=== PATIENT | female | born 1985 | race Caucasian/White ===

== ENCOUNTER → 2016-07-15 | Outpatient (REF) | payer OTHER, MEDICAID | LOC: M SFHCLACO 12:18 | PROVIDERS: ATTEND Physician Assistant | DX: R30.0 Dysuria (principal) ==

== ENCOUNTER → 2016-11-23 | Outpatient (CLI) | payer MEDICAID ==
[2016-11-23 16:58] LABS: ALBUMIN 3.8 GM/DL (3.2-5.2); ALBUMIN/GLOBULIN RATIO 1.52 (1.00-1.93); ALKALINE PHOSPHATASE 40 U/L (45-117); ALT/SGPT 21 U/L (12-78); AMYLASE 52 U/L (25-115); ANION GAP 5 MEQ/L (8-16); AST/SGOT 12 U/L (15-37); BILIRUBIN,TOTAL 0.2 MG/DL (0.2-1.0); BLOOD UREA NITROGEN 10 MG/DL (7-18); CARBON DIOXIDE LEVEL 28 MEQ/L (21-32); CHLORIDE LEVEL 109 MEQ/L (98-107); CREATININE FOR GFR 0.69 MG/DL (0.55-1.02); GLOMERULAR FILTRATION RATE > 60.0 (>60); GLUCOSE, FASTING 69 MG/DL (70-105); POTASSIUM SERUM 4.5 MEQ/L (3.5-5.1); SODIUM LEVEL 142 MEQ/L (136-145); TOTAL PROTEIN 6.3 GM/DL (6.4-8.2)
[2016-11-23 17:04] LABS: BASO % 0.4 % (0.0-1.0); EOS # 0.1 K/mm3 (0.0-0.50); EOS % 1.5 % (0.0-3.0); LARGE UNSTAINED CELL # 0.1 K/mm3 (0.0-0.4); LARGE UNSTAINED CELL % 1.7 % (0.0-4.0); LYMPH # 1.9 K/mm3 (1.5-4.5); LYMPH % 24.9 % (24.0-44.0); MEAN CORPUSCULAR HEMOGLOBIN 32.3 pg (27.0-33.0); MEAN CORPUSCULAR HGB CONC 31.7 g/dl (32.0-36.5); MEAN CORPUSCULAR VOLUME 101.9 fl (80.0-96.0); MONO # 0.4 K/mm3 (0.0-0.8); MONO % 5.4 % (0.0-5.0); NEUTROPHILS # 5.1 K/mm3 (1.8-7.7); NEUTROPHILS % 66.2 % (36.0-66.0); PLATELET COUNT, AUTOMATED 309 k/mm3 (150-450); RED CELL DISTRIBUTION WIDTH 11.8 % (11.5-14.5); WHITE BLOOD COUNT 7.7 K/mm3 (4.0-10.0)
== END ==
LOC: M ADAMS 09:52
PROVIDERS: ATTEND Physician Assistant
DX: R10.10 Upper abdominal pain, unspecified (principal)

== ENCOUNTER → 2016-12-21 | Outpatient (CLI) | payer MEDICAID ==
[2016-12-21 18:11] LABS: BASO % 0.2 % (0.0-1.0); EOS # 0.1 K/mm3 (0.0-0.50); EOS % 1.4 % (0.0-3.0); LARGE UNSTAINED CELL # 0.1 K/mm3 (0.0-0.4); LARGE UNSTAINED CELL % 1.5 % (0.0-4.0); LYMPH # 0.9 K/mm3 (1.5-4.5); LYMPH % 11.5 % (24.0-44.0); MEAN CORPUSCULAR HEMOGLOBIN 32.7 pg (27.0-33.0); MEAN CORPUSCULAR HGB CONC 33.4 g/dl (32.0-36.5); MONO # 0.6 K/mm3 (0.0-0.8); NEUTROPHILS # 5.3 K/mm3 (1.8-7.7); NEUTROPHILS % 77.4 % (36.0-66.0); PLATELET COUNT, AUTOMATED 243 k/mm3 (150-450); RED CELL DISTRIBUTION WIDTH 12.3 % (11.5-14.5); WHITE BLOOD COUNT 6.8 K/mm3 (4.0-10.0)
== END ==
LOC: M WUC 14:39
PROVIDERS: ATTEND Physician Assistant
DX: N73.9 Female pelvic inflammatory disease, unspecified (principal)

== ENCOUNTER → 2016-12-26 | Outpatient (CLI) | payer MEDICAID ==
--- NOTE | 2016-12-26 17:23 | REP ---
PELVIC ULTRASOUND: Real-time sonographic evaluation of the pelvis is performed utilizing transabdominal technique. The bladder measures 8. 2 x 4.7 x 9.6 cm. The uterus measures 10.0 x 4.9 x 5.9 cm. Endometrial thickness is 5 mm. Ovaries are normal in size and echotexture, the right ovary measuring 3.9 x 2.9 x 3.0 cm and left ovary 3.3 x 2.3 x 2.5 cm. There is no adnexal mass or free fluid. There is no torsion, with blood flow seen in each ovary with duplex Doppler evaluation, RI right ovary 0.62 and left ovary 0.54. IMPRESSION: Negative pelvic ultrasound. Signed by Santi Craven MD 12/26/2016 05:27 P
== END ==
LOC: M RAD 14:23
PROVIDERS: ATTEND Nurse Practitioner Women's Health
DX: R10.9 Unspecified abdominal pain (principal)

== ENCOUNTER 2017-04-11 19:15 | Emergency (ER) | payer MEDICAID, OTHER, SELFPAY ==
[~2017-04-11] VITALS: Ht 170.2 cm; Wt 61.4 kg
[2017-04-11] MEDS ORDERED: SUMA100T2 (19:27)
[2017-04-11] MEDS ORDERED: BUTA-198 (19:27)
[2017-04-11] MEDS ORDERED: TOPI50TA9 PO (19:27)
[2017-04-11] MEDS ORDERED: IBUP80TA (19:27)
[2017-04-11] MEDS ORDERED: BOTO200I (19:27)
[2017-04-11] MEDS ORDERED: HEAT0.35 (19:27)
[2017-04-11] MEDS ORDERED: NS 1,000 ML IV ONE (20:45)
[2017-04-11] MEDS ORDERED: diphenhydrAMINE INJ 50MG/ML VIAL (J1200) IV ONE (20:45)
[2017-04-11] MEDS ORDERED: METOCLOPRAMIDE INJ 10MG/2ML VIAL (J2765) IV ONE (20:45)
[2017-04-11] MEDS ORDERED: KETOROLAC 30 MG/ML VIAL (J1885) IV ONE (20:45)
[2017-04-11 22:21] VITALS: BP 128/74
== END 2017-04-11 22:24 | disposition home or self-care (01) ==
LOC: M ED 19:15
DX: G43.909 Migraine, unspecified, not intractable, without status migrainosus (principal); F17.200 Nicotine dependence, unspecified, uncomplicated; Z79.899 Other long term (current) drug therapy; Z88.5 Allergy status to narcotic agent; Z88.1 Allergy status to other antibiotic agents
CPT/HCPCS: 96374; 96375; 99283; J1200; J1885; J2765

== ENCOUNTER → 2017-07-22 | Outpatient (CLI) | payer OTHER ==
[2017-07-22 15:33] LABS: BASO % 0.4 % (0.0-1.0); EOS # 0.1 10^3/uL (0.0-0.50); EOS % 0.9 % (0.0-3.0); HEMATOCRIT 43.3 % (36.0-47.0); HEMOGLOBIN 14.6 g/dl (12.0-16.0); IMMATURE GRANULOCYTE % 0.1 % (0-0); LYMPH # 2.6 10^3/uL (1.5-4.5); LYMPH % 37.5 % (24.0-44.0); MEAN CORPUSCULAR HEMOGLOBIN 30.5 pg (27.0-33.0); MEAN CORPUSCULAR HGB CONC 33.7 g/dl (32.0-36.5); MEAN CORPUSCULAR VOLUME 90.6 fl (80.0-96.0); MONO # 0.5 10^3/uL (0.0-0.8); MONO % 6.4 % (0.0-5.0); NEUTROPHILS # 3.8 10^3/uL (1.8-7.7); NEUTROPHILS % 54.7 % (36.0-66.0); PLATELET COUNT, AUTOMATED 348 10^3/uL (150-450); RED BLOOD COUNT 4.78 10^6/uL (4.00-5.40); RED CELL DISTRIBUTION WIDTH 11.8 % (11.5-14.5)
[2017-07-22 15:48] LABS: VITAMIN B12 LEVEL 772 PG/ML
[2017-07-22 15:49] LABS: FOLATE 9.1 NG/ML
[2017-07-22 15:54] LABS: ALBUMIN 4.3 GM/DL (3.2-5.2); ALBUMIN/GLOBULIN RATIO 1.54 (1.00-1.93); ALKALINE PHOSPHATASE 51 U/L (45-117); ALT/SGPT 18 U/L (12-78); ANION GAP 8 MEQ/L (8-16); AST/SGOT 11 U/L (7-37); BILIRUBIN,TOTAL 0.6 MG/DL (0.2-1.0); BLOOD UREA NITROGEN 11 MG/DL (7-18); CALCIUM LEVEL 9.3 MG/DL (8.5-10.1); CARBON DIOXIDE LEVEL 23 MEQ/L (21-32); CHLORIDE LEVEL 107 MEQ/L (98-107); CREATININE FOR GFR 0.91 MG/DL (0.55-1.02); GLOMERULAR FILTRATION RATE > 60.0 (>60); GLUCOSE, FASTING 113 MG/DL (70-105); POTASSIUM SERUM 4.1 MEQ/L (3.5-5.1); SODIUM LEVEL 138 MEQ/L (136-145); TOTAL PROTEIN 7.1 GM/DL (6.4-8.2)
== END ==
LOC: M WUC 12:14
DX: R51 Headache (principal)

== ENCOUNTER 2017-08-03 10:59 | Emergency (ER) | payer OTHER | END 2017-08-03 15:17 | disposition home or self-care (01) | LOC: M ED 10:59 | DX: G43.909 Migraine, unspecified, not intractable, without status migrainosus (principal); T88.7XXA Unspecified adverse effect of drug or medicament, initial encounter | CPT/HCPCS: 99283 ==

== ENCOUNTER 2017-08-17 06:51 | Emergency (ER) | payer OTHER ==
[2017-08-17] MEDS: KETOROLAC 30 MG/ML VIAL (J1885) IV (07:33)
[2017-08-17] MEDS: NS 1,000 ML IV (07:34)
[2017-08-17] MEDS: METOCLOPRAMIDE INJ 10MG/2ML VIAL (J2765) IV (07:34)
[2017-08-17] MEDS: diphenhydrAMINE INJ 50MG/ML VIAL (J1200) IV (07:34)
== END 2017-08-17 09:05 | disposition home or self-care (01) ==
LOC: M ED 06:51
DX: G43.909 Migraine, unspecified, not intractable, without status migrainosus (principal); F17.200 Nicotine dependence, unspecified, uncomplicated; Z79.899 Other long term (current) drug therapy; Z88.5 Allergy status to narcotic agent; Z88.1 Allergy status to other antibiotic agents
CPT/HCPCS: J1200

== ENCOUNTER 2017-12-09 14:15 | Outpatient (RCR) | payer OTHER, MEDICAID, SELFPAY | END 2017-12-10 | LOC: M PT 14:15 | DX: Z51.89 Encounter for other specified aftercare (principal); G43.909 Migraine, unspecified, not intractable, without status migrainosus ==

== ENCOUNTER 2017-12-15 09:53 | Outpatient (RCR) | payer OTHER | END 2018-01-09 | LOC: M PT 09:53 | DX: Z51.89 Encounter for other specified aftercare (principal); G43.909 Migraine, unspecified, not intractable, without status migrainosus ==

== ENCOUNTER 2018-02-05 20:18 | Emergency (ER) | payer OTHER ==
[2018-02-06] MEDS: AUGMENTIN 875 MG TAB PO (01:31)
[2018-02-06] MEDS: ERYTHROMYCIN OPHTH OINT OD (01:31)
== END 2018-02-06 01:39 | disposition home or self-care (01) ==
LOC: M ED 02-06 01:39
DX: L03.213 Periorbital cellulitis (principal); H00.012 Hordeolum externum right lower eyelid; R51 Headache; Z72.0 Tobacco use; Z79.899 Other long term (current) drug therapy; Z88.1 Allergy status to other antibiotic agents; Z88.5 Allergy status to narcotic agent
CPT/HCPCS: 99283

== ENCOUNTER → 2018-10-06 | Outpatient (CLI) | payer OTHER ==
[~2018-10-06] MED LIST: AIMOVIG; AUGM875T28 PO; BOTO200I; BUTA-198; DEBL1TAB; DEPA250T32 PO; ERYTOIN8 OD; HEAT0.35; IBUP80TA; PRED20TA; SUMA100T2; TOPA200T7 PO; TOPI50TA9 PO; VENL37.52; ZONI25CA2
--- NOTE | 2018-10-06 15:44 | REP ---
Clinical: Left shoulder pain . Technique: Internal rotation, external rotation, and Y view. Findings: No acute fracture or dislocation. The acromioclavicular and glenohumeral joints are intact. No periarticular calcifications or degenerative changes are appreciated. Sub acromial space is normal. Surrounding soft tissues are unremarkable. Impression: Age-appropriate left shoulder radiographs. Electronically Signed by Tree Lee MD 10/06/2018 03:35 P
== END ==
LOC: M ADAMS 14:38
PROVIDERS: ATTEND Physician Assistant Medical
DX: M25.512 Pain in left shoulder (principal)

== ENCOUNTER 2018-12-01 08:08 | Outpatient (RCR) | payer OTHER | END 2018-12-10 | LOC: M PT 08:08 | PROVIDERS: ATTEND Orthopaedic Surgery | DX: M75.42 Impingement syndrome of left shoulder (principal) ==

== ENCOUNTER 2019-01-04 08:13 | Outpatient (RCR) | payer OTHER | END 2019-01-09 | LOC: M PT 08:13 | PROVIDERS: ATTEND Orthopaedic Surgery | DX: M75.41 Impingement syndrome of right shoulder (principal) ==

== ENCOUNTER 2019-01-11 08:51 | Outpatient (RCR) | payer OTHER | END 2019-02-09 | LOC: M PT 08:51 | PROVIDERS: ATTEND Orthopaedic Surgery | DX: Z47.89 Encounter for other orthopedic aftercare (principal); M75.42 Impingement syndrome of left shoulder ==

== ENCOUNTER 2019-05-12 19:16 | Emergency (ER) | payer OTHER ==
[~2019-05-12] VITALS: Ht 170.2 cm; Wt 74.0 kg
[2019-05-12] MEDS ORDERED: PATA2.5S OS (20:43)
[2019-05-12 20:49] VITALS: BP 122/78
== END 2019-05-12 20:53 | disposition home or self-care (01) ==
LOC: M ED 19:16
DX: H10.32 Unspecified acute conjunctivitis, left eye (principal); H02.844 Edema of left upper eyelid; Z88.1 Allergy status to other antibiotic agents; Z88.5 Allergy status to narcotic agent; F17.218 Nicotine dependence, cigarettes, with other nicotine-induced disorders

== ENCOUNTER 2019-05-14 13:17 | Emergency (ER) | payer OTHER ==
[~2019-05-14] VITALS: Ht 170.2 cm; Wt 72.9 kg
[~2019-05-14 13:17] MED LIST changes: +PATA2.5S OS
[2019-05-14] MEDS ORDERED: KETO0.02 OS (13:32)
[2019-05-14] MEDS ORDERED: FLUORESCEIN OPHTH 1 MG STRIP OS ONE (15:45)
[2019-05-14] MEDS ORDERED: TETRACAINE 0.5% OPHTH SOLN 4ML OS ONE (15:45)
[2019-05-14] MEDS ORDERED: PERCOCET 5MG/325MG TAB PO ONE (17:00)
[2019-05-14 19:46] VITALS: BP 133/78
== END 2019-05-14 19:49 | disposition short-term general hospital (02) ==
LOC: M ED 13:17
DX: H57.12 Ocular pain, left eye (principal); H54.7 Unspecified visual loss; G43.909 Migraine, unspecified, not intractable, without status migrainosus; F17.200 Nicotine dependence, unspecified, uncomplicated; Z79.899 Other long term (current) drug therapy; Z88.5 Allergy status to narcotic agent; Z88.1 Allergy status to other antibiotic agents

== ENCOUNTER → 2020-07-30 | Outpatient (REF) | payer OTHER, MEDICAID ==
[~2020-07-30] MED LIST changes: +KETO0.02 OS; +ZONI25CA13; -ZONI25CA2
[2020-07-30 12:50] LABS: HEMATOCRIT 44.5 % (36.0-47.0); HEMOGLOBIN 14.4 g/dl (12.0-15.5); MEAN CORPUSCULAR HEMOGLOBIN 31.2 pg (27.0-33.0); MEAN CORPUSCULAR HGB CONC 32.4 g/dl (32.0-36.5); MEAN CORPUSCULAR VOLUME 96.5 fl (80.0-96.0); PLATELET COUNT, AUTOMATED 335 10^3/uL (150-450); RED BLOOD COUNT 4.61 10^6/uL (4.00-5.40); WHITE BLOOD COUNT 6.9 10^3/uL (4.0-10.0)
[2020-07-30 13:29] LABS: ALBUMIN 3.9 GM/DL (3.2-5.2); ALT/SGPT 18 U/L (12-78); BILIRUBIN,TOTAL 0.3 MG/DL (0.2-1.0); BLOOD UREA NITROGEN 16 MG/DL (7-18); CALCIUM LEVEL 9.8 MG/DL (8.5-10.1); CARBON DIOXIDE LEVEL 24 MEQ/L (21-32); CHLORIDE LEVEL 111 MEQ/L (98-107); CREATININE FOR GFR 0.68 MG/DL (0.55-1.30); GLOMERULAR FILTRATION RATE > 60.0 (>60); GLUCOSE, FASTING 91 MG/DL (70-100); POTASSIUM SERUM 4.9 MEQ/L (3.5-5.1); RHEUMATOID FACTOR QUANT < 10.0 IU/ML (<15.0); SODIUM LEVEL 141 MEQ/L (136-145); TOTAL PROTEIN 6.4 GM/DL (6.4-8.2)
[2020-07-30 13:51] LABS: ERYTHROCYTE SEDIMENTATION RATE 1 mm/hr (0-20)
[2020-07-31 21:07] LABS: ANA (HEP2) Negative (.); Lyme Disease IgG/IgM Antibodie <0.91 ISR (0.00-0.90); Lyme Disease IgM Ab Quantitati <0.80 index (0.00-0.79)
== END ==
LOC: M SFHCADAM 08:48
PROVIDERS: ATTEND Physician Assistant
DX: M08.00 Unspecified juvenile rheumatoid arthritis of unspecified site (principal); R21 Rash and other nonspecific skin eruption

== ENCOUNTER → 2022-06-20 | Outpatient (REF) | payer OTHER, MEDICAID ==
[2022-06-20 17:32] LABS: HEMOGLOBIN A1c 4.6 % (4.0-6.0)
[2022-06-20 17:34] LABS: BASO # 0.1 10^3/uL (0.0-0.2); BASO % 0.6 % (0.0-1.0); EOS # 0.1 10^3/uL (0.0-0.5); EOS % 0.7 % (0.0-3.0); HEMATOCRIT 40.5 % (36.0-47.0); HEMOGLOBIN 12.8 g/dl (12.0-15.5); LYMPH # 2.7 10^3/uL (1.5-5.0); LYMPH % 31.8 % (24.0-44.0); MEAN CORPUSCULAR HEMOGLOBIN 29.6 pg (27.0-33.0); MEAN CORPUSCULAR HGB CONC 31.6 g/dl (32.0-36.5); MEAN CORPUSCULAR VOLUME 93.8 fl (80.0-96.0); MONO # 0.5 10^3/uL (0.0-0.8); MONO % 6.1 % (2.0-8.0); NEUTROPHILS # 5.2 10^3/uL (1.5-8.5); NEUTROPHILS % 60.4 % (36.0-66.0); PLATELET COUNT, AUTOMATED 397 10^3/uL (150-450); RED BLOOD COUNT 4.32 10^6/uL (4.00-5.40); WHITE BLOOD COUNT 8.5 10^3/uL (4.0-10.0)
[2022-06-20 17:52] LABS: TOTAL IRON BINDING CAPACITY 367 UG/DL (250-425)
[2022-06-20 17:53] LABS: ALKALINE PHOSPHATASE 49 U/L (46-116); ALT/SGPT 16 U/L (7.0-40); AST/SGOT 15 U/L (<34); BILIRUBIN,TOTAL 0.4 MG/DL (0.3-1.2); BLOOD UREA NITROGEN 11 MG/DL (9-23); CALCIUM LEVEL 9.6 MG/DL (8.5-10.1); CARBON DIOXIDE LEVEL 22 MMOL/L (20-31); CHLORIDE LEVEL 107 MMOL/L (98-107); CHOLESTEROL LEVEL 201 MG/DL (<200); CHOLESTEROL RISK RATIO 3.42 (<5); CREATININE FOR GFR 0.61 MG/DL (0.55-1.30); FREE T4 1.16 NG/DL (0.89-1.76); GLOMERULAR FILTRATION RATE > 60.0 (>60); GLUCOSE, FASTING 88 MG/DL (60-100); HDL CHOLESTEROL 58.7 MG/DL (>40); LDL CHOLESTEROL 129.3 MG/DL (<100); NON-HDL-C 142 MG/DL; POTASSIUM SERUM 4.5 MMOL/L (3.5-5.1); SODIUM LEVEL 139 MMOL/L (136-145); TOTAL PROTEIN 6.5 G/DL (5.7-8.2); TRIGLYCERIDES LEVEL 65 MG/DL (<150)
[2022-06-20 17:54] LABS: FERRITIN 4.5 NG/ML (7.3-270.7); THYROID STIMULATING HORMONE 1.028 uIU/ML (0.55-4.78)
[2022-06-20 17:56] LABS: IRON (FE) 36 UG/DL (50-170); PERCENT SATURATION 9.8 % (13.2-45.0)
[2022-06-20 17:58] LABS: TOTAL 25(OH) VITAMIN D 30.8 NG/ML (20.0-100.0)
== END ==
LOC: M SFHCADAM 11:49
PROVIDERS: ATTEND Physician Assistant
DX: Z68.30 Body mass index [BMI] 30.0-30.9, adult (principal); R53.83 Other fatigue; N94.6 Dysmenorrhea, unspecified

== ENCOUNTER → 2023-07-30 | Outpatient (CLI) | payer MEDICAID, OTHER ==
[~2023-07-30] MED LIST changes: -KETO0.02 OS; +KETO5DRO33 OS; +TOPI-21 PO; -TOPI50TA9 PO
[2023-07-30 15:52] LABS: BASO % 0.5 % (0.0-1.0); EOS # 0.1 10^3/uL (0.0-0.5); EOS % 0.8 % (0.0-3.0); HEMATOCRIT 41.5 % (36.0-47.0); HEMOGLOBIN 13.1 g/dl (12.0-15.5); LYMPH # 2.5 10^3/uL (1.5-5.0); LYMPH % 42.5 % (24.0-44.0); MEAN CORPUSCULAR HEMOGLOBIN 28.7 pg (27.0-33.0); MEAN CORPUSCULAR HGB CONC 31.6 g/dl (32.0-36.5); MEAN CORPUSCULAR VOLUME 90.8 fl (80.0-96.0); MONO # 0.4 10^3/uL (0.0-0.8); MONO % 6.9 % (2.0-8.0); NEUTROPHILS # 2.9 10^3/uL (1.5-8.5); NEUTROPHILS % 49.1 % (36.0-66.0); PLATELET COUNT, AUTOMATED 363 10^3/uL (150-450); RED BLOOD COUNT 4.57 10^6/uL (4.00-5.40)
[2023-07-30 15:55] LABS: ALBUMIN 3.8 G/DL (3.2-5.2); ALKALINE PHOSPHATASE 48 U/L (46-116); ALT/SGPT 15 U/L (7.0-40); AST/SGOT 11 U/L (<34); BILIRUBIN,TOTAL 0.4 MG/DL (0.3-1.2); BLOOD UREA NITROGEN 15 MG/DL (9-23); CALCIUM LEVEL 9.2 MG/DL (8.5-10.1); CARBON DIOXIDE LEVEL 24 MMOL/L (20-31); CHLORIDE LEVEL 107 MMOL/L (98-107); GLOMERULAR FILTRATION RATE > 60.0 (>60); GLUCOSE, FASTING 95 MG/DL (60-100); POTASSIUM SERUM 4.3 MMOL/L (3.5-5.1); SODIUM LEVEL 137 MMOL/L (136-145); TOTAL PROTEIN 6.2 G/DL (5.7-8.2)
[2023-07-30 15:57] LABS: FREE T4 0.98 NG/DL (0.89-1.76)
[2023-07-30 15:58] LABS: THYROID STIMULATING HORMONE 1.187 uIU/ML (0.55-4.78)
== END ==
LOC: M PLALAB 12:47
PROVIDERS: ATTEND Physician Assistant
DX: G43.109 Migraine with aura, not intractable, without status migrainosus (principal); Z68.32 Body mass index [BMI] 32.0-32.9, adult

== ENCOUNTER → 2023-09-09 | Outpatient (CLI) | payer OTHER | LOC: M CARPUL 10:14 | PROVIDERS: ATTEND Physician Assistant | DX: I34.1 Nonrheumatic mitral (valve) prolapse (principal) ==

== ENCOUNTER → 2023-09-25 | Outpatient (REF) | payer OTHER, MEDICAID | LOC: M SFHCWAGY 13:17 | PROVIDERS: ATTEND Nurse Practitioner Family | DX: Z12.4 Encounter for screening for malignant neoplasm of cervix (principal) ==

== ENCOUNTER → 2023-10-16 | Outpatient (CLI) | payer OTHER | LOC: M RAD 08:41 | PROVIDERS: ATTEND Nurse Practitioner Family | DX: N85.8 Other specified noninflammatory disorders of uterus (principal) ==

== ENCOUNTER 2023-11-05 15:19 | Emergency (ER) | payer OTHER ==
[~2023-11-05] VITALS: Ht 170.2 cm; Wt 83.1 kg
[2023-11-05] MEDS ORDERED: TOPA50TA8 PO (15:39)
[2023-11-05] MEDS ORDERED: TOPA1TAB PO (15:39)
[2023-11-05] MEDS ORDERED: IBUP-1022 PO (17:49)
[2023-11-05] MEDS ORDERED: CYCL-707 PO (17:49)
[2023-11-05 17:57] VITALS: BP 143/71; TEMP 97.9; O2SAT 100
== END 2023-11-05 18:00 | disposition home or self-care (01) ==
LOC: M ED 15:19
DX: S39.012A Strain of muscle, fascia and tendon of lower back, initial encounter (principal); Y92.9 Unspecified place or not applicable; Y93.9 Activity, unspecified; Y99.9 Unspecified external cause status; Z88.8 Allergy status to other drugs, medicaments and biological substances; Z79.1 Long term (current) use of non-steroidal anti-inflammatories (NSAID); Z79.899 Other long term (current) drug therapy

== ENCOUNTER → 2024-08-22 | Outpatient (REF) | payer OTHER, MEDICAID ==
[~2024-08-22] MED LIST changes: +CYCL-707 PO; +IBUP-1022 PO; +TOPA1TAB PO; +TOPA50TA8 PO
[2024-08-22 14:43] LABS: BASO % 0.7 % (0.0-1.0); EOS # 0.1 10^3/uL (0.0-0.5); EOS % 1.2 % (0.0-3.0); HEMATOCRIT 42.6 % (36.0-47.0); HEMOGLOBIN 13.1 g/dl (12.0-15.5); LYMPH % 33.1 % (24.0-44.0); MEAN CORPUSCULAR HEMOGLOBIN 27.5 pg (27.0-33.0); MEAN CORPUSCULAR HGB CONC 30.8 g/dl (32.0-36.5); MEAN CORPUSCULAR VOLUME 89.3 fl (80.0-96.0); MONO # 0.4 10^3/uL (0.0-0.8); MONO % 6.7 % (2.0-8.0); NEUTROPHILS # 3.5 10^3/uL (1.5-8.5); NEUTROPHILS % 57.8 % (36.0-66.0); PLATELET COUNT, AUTOMATED 363 10^3/uL (150-450); RED BLOOD COUNT 4.77 10^6/uL (4.00-5.40)
[2024-08-22 15:43] LABS: ALBUMIN 3.7 G/DL (3.2-5.2); ALKALINE PHOSPHATASE 45 U/L (35-104); ALT/SGPT 12 U/L (7.0-40); AST/SGOT 10 U/L (<34); BILIRUBIN,TOTAL 0.2 MG/DL (0.3-1.2); BLOOD UREA NITROGEN 15 MG/DL (9-23); CALCIUM LEVEL 8.9 MG/DL (8.5-10.1); CARBON DIOXIDE LEVEL 22 MMOL/L (20-31); CHLORIDE LEVEL 111 MMOL/L (98-107); CHOLESTEROL LEVEL 152 MG/DL (<200); CHOLESTEROL RISK RATIO 2.71 (<5); CREATININE FOR GFR 0.76 MG/DL (0.55-1.30); GLOMERULAR FILTRATION RATE > 60.0 (>58); GLUCOSE, FASTING 87 MG/DL (60-100); LDL CHOLESTEROL 87.6 MG/DL (<100); POTASSIUM SERUM 4.5 MMOL/L (3.5-5.1); SODIUM LEVEL 144 MMOL/L (136-145); TOTAL PROTEIN 6.3 G/DL (5.7-8.2); TRIGLYCERIDES LEVEL 42 MG/DL (<150)
[2024-08-22 15:44] LABS: THYROID STIMULATING HORMONE 0.762 uIU/ML (0.55-4.78)
[2024-08-22 15:45] LABS: FREE T4 1.08 NG/DL (0.89-1.76)
== END ==
LOC: M SFHCADAM 09:02
PROVIDERS: ATTEND Physician Assistant
DX: F17.211 Nicotine dependence, cigarettes, in remission (principal); N94.6 Dysmenorrhea, unspecified; G43.109 Migraine with aura, not intractable, without status migrainosus; Z68.31 Body mass index [BMI] 31.0-31.9, adult

== ENCOUNTER 2024-10-07 06:03 | Day surgery (SDC) | payer OTHER ==
[~2024-10-07] VITALS: Ht 170.2 cm; Wt 85.3 kg
[~2024-10-07 06:03] MED LIST changes: +IBUP200T46 PO; +PHEN15CA6 PO
[2024-10-07] MEDS ORDERED: LR 1,000 ML IV SCH ×3 (06:15→09:35)
[2024-10-07 06:42] LABS: HEMOGLOBIN 12.9 g/dl (12.0-15.5); MEAN CORPUSCULAR HEMOGLOBIN 27.6 pg (27.0-33.0); MEAN CORPUSCULAR HGB CONC 31.5 g/dl (32.0-36.5); MEAN CORPUSCULAR VOLUME 87.8 fl (80.0-96.0); PLATELET COUNT, AUTOMATED 308 10^3/uL (150-450); RED BLOOD COUNT 4.67 10^6/uL (4.00-5.40); WHITE BLOOD COUNT 5.4 10^3/uL (4.0-10.0)
[2024-10-07] MEDS ORDERED: LIDOCAINE 1% SDV 30ML VIAL As Ordered ONE (06:57)
[2024-10-07] MEDS ORDERED: propofoL 200 MG/20 ML VIAL As Ordered ONE (06:57)
[2024-10-07] MEDS ORDERED: METOCLOPRAMIDE INJ 10MG/2ML VIAL As Ordered ONE (06:57)
[2024-10-07] MEDS ORDERED: ONDANSETRON 4MG 2ML VIAL As Ordered ONE (06:57)
[2024-10-07] MEDS ORDERED: LIDOCAINE 2% 100MG/5ML SDV (FOR ANES.) As Ordered ONE (06:57)
[2024-10-07] MEDS ORDERED: SUGAMMADEX SODIUM 500 MG/5 ML VIAL (BRIDION) As Ordered ONE (06:58)
[2024-10-07] MEDS ORDERED: ROCURONIUM BROMIDE 50MG/5ML VIAL As Ordered ONE (06:58)
[2024-10-07] MEDS ORDERED: HYDROmorphone HCL 2MG/ML 1ML VIAL As Ordered ONE (06:58)
[2024-10-07] MEDS ORDERED: ACETAMINOPHEN 1000MG/100ML IV BAG As Ordered ONE (07:00)
[2024-10-07] MEDS ORDERED: fentaNYL 100 MCG/2 ML INJECTION As Ordered ONE (07:08)
[2024-10-07] MEDS ORDERED: MIDAZOLAM INJ 2MG/2ML VIAL As Ordered ONE (07:08)
[2024-10-07] MEDS ORDERED: KETOROLAC 30 MG/ML 1ML VIAL As Ordered ONE (07:10)
[2024-10-07] MEDS ORDERED: GLYCOPYRROLATE INJ 0.2 MG/ML 2 ML VIAL As Ordered ONE (08:02)
[2024-10-07] MEDS ORDERED: fentaNYL 100 MCG/2 ML INJECTION IV PRN (08:55)
[2024-10-07] MEDS ORDERED: ONDANSETRON 4MG 2ML VIAL IV PRN (08:55)
[2024-10-07] MEDS ORDERED: IBUP-1022 PO (08:58)
[2024-10-07] MEDS ORDERED: OXYC1TAB23 PO (09:02)
[2024-10-07] MEDS: HYDROMORPHONE HCL 0.5 MG/ 0.5 ML SYRINGE IV PRN (09:09)
[2024-10-07] MEDS: oxyCODONE 5MG TAB PO PRN (09:20)
[2024-10-07] MEDS ORDERED: PERCOCET 5MG/325MG TAB PO PRN (09:35)
[2024-10-07 11:40] VITALS: BP 117/69; TEMP 96.3; O2SAT 100
== END 2024-10-07 11:45 | disposition home or self-care (01) ==
LOC: M SDC 06:03
PROVIDERS: ATTEND Specialist
DX: N92.0 Excessive and frequent menstruation with regular cycle (principal); Z30.2 Encounter for sterilization; R51.9 Headache, unspecified; Z79.899 Other long term (current) drug therapy
CPT/HCPCS: 36415; 58563; 58661; 81025; 85027; 88302; 88305; J0131; J1100; J1171; J1596; J1885; J2250; J2405; J2765; J3010